=== PATIENT | male | born 1960 | race Caucasian/White ===

== ENCOUNTER → 2023-10-20 19:09 | Outpatient (REF) | payer BC, SELFPAY | LOC: MRI 3T 19:09 | PROVIDERS: ATTENDING PHYSICIAN Family Medicine | DX: N40.2 Nodular prostate without lower urinary tract symptoms (principal) | CPT/HCPCS: 72197; A9575 ==

== ENCOUNTER 2025-04-26 06:23 | Day surgery (SDC) | payer MEDICARE, SELFPAY | END 2025-04-26 11:40 | disposition home or self-care (01) | LOC: GI 06:23 | PROVIDERS: ATTENDING PHYSICIAN Internal Medicine Gastroenterology | DX: R10.13 Epigastric pain (principal); R93.3 Abnormal findings on diagnostic imaging of other parts of digestive tract; K62.89 Other specified diseases of anus and rectum | CPT/HCPCS: 43235; 88305 ==